=== PATIENT | female | born 1960 ===

== ENCOUNTER 2018-03-18 05:50 | Inpatient (IN) | payer OTHER ==
[~2018-03-18] VITALS: Ht 160 cm; Wt 201.0 kg
[2018-03-19] MEDS ORDERED: PERCOCET 5-3251 EACH PO (08:35)
== END 2018-03-19 10:14 | disposition home or self-care (01) | DRG 627 ==
LOC: CIR.AMB 05:50 → O/R 09:28 → SURH 10:14
PROVIDERS: Surgery
PROC: 0GTG0ZZ Resection of Left Thyroid Gland Lobe, Open Approach (ICD-10-PCS; principal; 2018-03-18 09:30)
DX: E04.1 Nontoxic single thyroid nodule (principal); E89.0 Postprocedural hypothyroidism